=== PATIENT | female | born 1970 ===

== ENCOUNTER 2022-03-25 20:26 | Emergency (ER) | payer BC, SELFPAY ==
[2022-03-25 20:37] VITALS: BP 148/90; PULSE 92; RESP 16; TEMP 37.2; O2SAT 100; BMI 20.8
== END 2022-03-25 21:15 | disposition left against medical advice (07) ==
DX: Z53.21 Procedure and treatment not carried out due to patient leaving prior to being seen by health care provider (principal)

== ENCOUNTER 2023-01-02 13:44 | Outpatient (CLI) | payer BC, OTHER, SELFPAY | END 2023-01-02 13:45 | disposition home or self-care (01) | PROVIDERS: PCP Family Medicine; Visit Provider Family Medicine | DX: Z00.00 Encounter for general adult medical examination without abnormal findings (principal); R53.83 Other fatigue; E78.2 Mixed hyperlipidemia; Z78.0 Asymptomatic menopausal state | CPT/HCPCS: 80048; 82670; 83001; 83002; 84439; 84443; 85025; 86039; 86140 ==

== ENCOUNTER 2023-02-14 10:13 | Outpatient (CLI) | payer BC, OTHER, SELFPAY | END 2023-02-14 10:14 | disposition home or self-care (01) | LOC: INJ CL 10:14 | PROVIDERS: PCP Family Medicine; Visit Provider Family Medicine | DX: M54.16 Radiculopathy, lumbar region (principal) | CPT/HCPCS: 64483; J1100; Q9966 ==

== ENCOUNTER 2023-10-17 08:00 | Outpatient (CLI) | payer BC, SELFPAY ==
--- OUTSIDE RECORDS SUMMARY | 2023-10-17 08:03 | XMS_ITS | Referral Summary ---
Author Organization [facility] Address [address] [place] [address] Care Team Providers Care Candy Separator Enrobing Name Role Phone Elsewhere, Pcp Primary Care Provider Unavailabl e Source Comments Patient records contain information from all sites at [facility]. For routine questions regarding patient records, call [phone] during business hours, M-F 8:00 AM - 5:00 PM Central Time. Record requests for emergency care only can be directed to [phone] at any time.[facility] Allergies Active Allergy Reactions Criticality Noted Date Comments Amoxicillin Other (see comments) 11/30/2009 Cerner listed no reaction Penicillins Other (see comments),Edema (Reselect Reaction),Hives (Reselect Reaction) 05/12/2011 Medications Medication Sig Dispensed Refills Start Date End Date Status LACTOBACILLUS RHAMNOSUS GG ORAL Take by mouth as needed. Takes when on a antibiotic only. 02/17/2016 Active albuterol (PROVENTIL HFA,VENTOLIN HFA) 90 mcg/actuation inhaler Inhale 2 puffs as needed. 12/09/2017 Active multivitamin capsule Take 1 capsule by mouth daily. 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 No 07/31/2022 Within the last year, have y ou been humiliated or emotionally abused in other ways by your partner or ex-partner? No Within the last year, have y ou been kicked, hit, slapped, or otherwise physically hurt by your partner or ex-partner? No 07/31/2022 Within the last year, have y ou been raped or forced to have any kind of sexual activity by your partner or ex-partner? No 07/31/2022 Overall Financial Resource Strain (CARDIA) Answe r Date Recorded How hard is it for you to pa y for the very basics like food, housing, medical care, and heating? Not hard at all 07/31/2022 PHQ-2 Answer Date Recorded PHQ-2 Score 0 08/05/2022 Exercise Vital Sign Answer Date Recorde d Days of Exercise per Week Not on file 2022 On average, how many minutes do you engage in exercise at this level? 60 min 07/31/2022 Hunger Vital Sign Answer Date Recorded Within the past 12 months, y ou worried that your food would run out before you got the money to buy more. Never true 08/01/19 23 Within the past 12 months, t he food you bought just didn't last and you didn't have money to get more. Never true 07/31/2022 PRAPARE - Transportation Answer Date Re corded In the past 12 months, has l ack of transportation kept you from medical appointments or from getting medications? No 05/2022 In the past 12 months, has l ack of transportation kept you from meetings, work, or from getting things needed for daily living? No 07/31/2022 Nutrition Answer Date Recorded Nutrition: EVOO Fat Source Unknown 07/31 On average, how many serving s of fruits and vegetables do you eat per day (serving size is equal to 1 cup or approximately the size of a tennis ball)? 0-2 07/31/2022 Dental Answer Date Recorded Dental: Regular Dentist Yes 08/01/19 Employment Answer Date Recorded Employment status Employed and actively working without restrictions 07/31/2022 Housing Stability Answer Date Recorded What is your living situation today? I have a [facility] place to live 07/31/2022 Sex and Gender Information Value Date Recorded Sex Assigned at Female 06/22/2017 10:12 AM CDT Gender Identity Female 06/22/2017 10:12 AM CDT Sexual Orientation Straight 06/22/2017 10 :12 AM CDT Last Filed Vital Signs Vital Sign Reading Time Taken Comments Blood Pressure 106/76 08/05/2022 1:38 PM CDT Pulse 65 12/20/2017 10:09 AM CDT Temperature 36.6 ??C (97.9 ??F) 12/20/2017 10:09 AM C DT Respiratory Rate 16 12/20/2017 10:09 AM CDT Oxygen Saturation 100% 12/20/2017 10:09 AM CDT Inhaled Oxygen Concentration - - Weight 62.1 kg (137 lb 0.3 oz) 08/05/2022 1:38 P M CDT Height 168 cm (5' 6.14) 08/05/2022 1:38 PM CDT Body Mass Index 22.02 08/05/2022 1:38 PM CDT Plan of Treatment Not on file Procedures Procedure Name Priority Date/Time Associated Diagnosis Comments BI BREAST SCREENING BILATERAL WITH TOMOSYNTHESIS RAD - Routine (most inpatients and all outpatients) 09/16/2022 12:33 PM CDT Wellness Screening Screening Mammogram Breast Cancer COLOGUARD Routine 08/24/2022 9:05 AM CDT Wellness Screening HPV WITH GENOTYPING, PCR, THINPREP Routine 08/05/2022 2:15 PM CDT GLUCOSE, FASTING, S/P Routine 04/15/2020 7:53 AM CLOTH COLORER Screening Examination Diabetes Mellitus LIPID PANEL, S Routine 04/15/2020 7:53 AM CLOTH COLORER Hypercholesterole sailaja from Last 3 Months or Most Recently Relevant to Health Maintenance Results * BI Breast Screening Bilateral with Tomosynthesis (09/16/2022 12:33 PM CDT) Anatomical Region Laterality Modality Breast, Breast Imaging RST L OS, Breast Imaging ARZ LOS, Breast Imaging FLA LOS Bilateral Mammography 09/16/2022 12:5 8 PM CDT Impressions 09/16/2022 12:59 PM CDT Negative. RECOMMENDATION: ??Annual Screening Mammogram ASSESSMENT: ??BI-RADS: 1: Negative. Narrative 09/16/2022 12:59 PM CDT EXAM: ??BI BREAST SCREENING BILATERAL WITH TOMOSYNTHESIS Current study was evaluated with a Computer Aided Detection (CAD) system. INDICATION: ??Screening mammogram. COMPARISON: ??Prior exam(s) were available and reviewed for comparison. DENSITY: ??d. The breast(s) are extremely dense, which lowers the sensitivity of mammography. FINDINGS: ??No mammographic findings of malignancy. Procedure Note Kael Kam M.D. - 09/16/2022 EXAM: BI BREAST SCREENING BILATERAL WITH TOMOSYNTHESIS Current study was evaluated with a Computer Aided Detection (CAD) system. INDICATION: Screening mammogram. COMPARISON: Prior exam(s) were available and reviewed for comparison. DENSITY: d. The breast(s) are extremely dense, which lowers thesensitivity of mammography. FINDINGS: No mammographic findings of malignancy. IMPRESSION: Negative. RECOMMENDATION: Annual Screening Mammogram ASSESSMENT: BI-RADS: 1: Negative. Dalton Lam M.D. [facility]ED[place] * Cologuard - Sent Out Lab (08/24/2022 9:05 AM CDT) Result Negative Negative 09/07/2022 9:48 AM CDT EXLI Comment: NEGATIVE TEST RESULT. A negative Cologuard result indicates a low likelihood that a colorectal cancer (CRC) or advanced adenoma (adenomatous polyps with more advanced pre-malignant features) ??is present. The chance that a person with a negative Cologuard test has a colorectal cancer is less than 1 in 1500 (negative predictive value >99.9%) or has an ??advanced adenoma is less than ??5.3% (negative predictive value 94.7%). These data are based on a prospective cross-sectional study of 10,000 individuals at average risk for colorectal cancer who were screened with both Cologuard and colonoscopy. (Medardo Hackett al, N Engl J Med 2014;370(14):8189-2082) The normal value (reference range) for this assay is negative. COLOGUARD RE-SCREENING RECOMMENDATION: Periodic colorectal cancer screening is an important part of preventive healthcare for asymptomatic individuals at average risk for colorectal cancer. ??Following a negative Cologuard result, the [place] [employer] Society and U.S. Multi-Society Task Force screening guidelines recommend a Cologuard re-screening interval of 3 years. References: [place] [employer] Guideline for Colorectal Cancer Screening: https://www.cancer.org/cancer/pwfrw-xoupjr-kjomof/detection- diagnosis-staging/acs-recommendations.html.; Melquiades DK, Linda CLAROS, Zander XiaoK, Colorectal Cancer Screening: Recommendations for Physicians and Patients from the U.S. Multi-Society Task Force on Colorectal Cancer Screening , Am J Gastroenterology 2017; 112:6060-4072. TEST DESCRIPTION: Composite algorithmic analysis of stool DNA-biomarkers with hemoglobin immunoassay. ?? Quantitative values of individual biomarkers are not reportable and are not associated with individual biomarker result reference ranges. Cologuard is intended for colorectal cancer screening of adults of either sex, 45 years or older, who are at average-risk for colorectal cancer (CRC). Cologuard has been approved for use by the U.S. FDA. The performance of Cologuard was established in a cross sectional study of average-risk adults aged 50-84. Cologuard performance in patients ages 45 to 49 years was estimated by sub-group analysis of near-age groups. Colonoscopies performed for a positive result may find as the most clinically significant lesion: colorectal cancer [4.0%], advanced adenoma (including sessile serrated polyps greater than or equal to 1cm diameter) [20%] or non- advanced adenoma [31%]; or no colorectal neoplasia [45%]. These estimates are derived from a prospective cross-sectional screening study of 10,000 individuals at average risk for colorectal cancer who were screened with both Cologuard and colonoscopy. (Medardo Hackett al, N Engl J Med 2014;370(14):1318-8998.) Cologuard may produce a false negative or false positive result (no colorectal cancer or precancerous polyp present at colonoscopy follow up). A negative Cologuard test result does not guarantee the absence of CRC or advanced adenoma (pre-cancer). The current Cologuard screening interval is every 3 years. ([place] [employer] Society and U.S. Multi-Society Task Force). Cologuard performance data in a 10,000 patient pivotal study using colonoscopy as the reference method can be accessed at the following location: www.[employer]/results. Additional description of the Cologuard test process, warnings and precautions can be found at www.[email or web address].Lumific. Stool (Stool) 08/24/2022 9:0 5 AM CDT 08/25/2022 6:21 PM CDT Dalton Lam M.D. LAB BODY FLUIDS AND STOOLS ORDERABLES [employer] [address] [place] [id number] EXLI [employer] [address] [place] [address], [address] [place] [address] * HPV with Genotyping, PCR, ThinPrep (08/05/2022 2:15 PM CDT) HPV with Genotyping, ThinPrep, PCR Negative Negative 08/08/2022 4:37 PM CDT MKTO Comment: Negative for high risk HPV by nucleic acid amplification. ??The following high risk HPV types were not detected: 16, 18, 31, 33, 35, 39, 45, 51, 52, 56, 58, 59, 66, and 68 This result does not rule out HPV in the patient, as the sensitivity of the test depends on the timing of the specimen collection and the quality of the specimen. Result should be correlated with patient's history, clinical presentation, and AX SURVEY WORKER cytology report. 08/05/2022 2:15 PM CDT 08/08/2022 7:05 AM CDT Dalton Lam M.D. LAB MICROBIOLOGY - G ENERAL ORDERABLES [facility] [address] [place] [address], [place] MKTO [address] [facility] [address] [place] [address] * (ABNORMAL) Lipid Panel (04/15/2020 7:53 AM CLOTH COLORER) Cholesterol, Total 211(H) mg/dL 2020 11:07 AM CLOTH COLORER OWAT Comment: ----REFERENCE VALUE---- Desirable: < 200 Borderline high: 200 - 239 High: > or = 240 Triglycerides 62 mg/dL 04/15/2020 11:07 AM CLOTH COLORER OWAT Comment: ----REFERENCE VALUE---- Normal: <150 Borderline high: 150-199 High: 200-499 Very high: > or =500 Cholesterol, HDL 56 >=50 mg/dL 04/15/19 11:07 AM CLOTH COLORER OWAT Calculated LDL 143(H) mg/dL 04/15/2020 11:07 AM CLOTH COLORER OWAT Comment: ----REFERENCE VALUE---- Desirable: <100 Above Desirable: 100-129 Borderline high: 130-159 High: 160-189 Very high: > or =190 Cholesterol, Non-HDL, Calculated 155 mg/dL 04/15/2020 11:07 AM CLOTH COLORER OWAT Comment: ----REFERENCE VALUE---- Desirable: <130 Above Desirable: 130-159 Borderline high: 160-189 High: 190-219 Very high: > or =220 Blood (Blood, Venous) 04/15/2020 7:53 AM CLOTH COLORER 04/15/2020 10:39 AM CLOTH COLORER Fang Barraza APRN CPetersonN.P., R.N. LAB BL OOD ADD-ON [facility] [address] [place] [address], [place] OWAT [facility] [address] [place] [address] * Glucose, Fasting (04/15/2020 7:53 AM CLOTH COLORER) Glucose, P 90 70 - 100 mg/dL 04/15/2020 11:19 AM CLOTH COLORER OWAT Last Intake 12 hr 04/15/2020 10:39 AM CLOTH COLORER OWAT Blood (Blood, Venous) 04/15/2020 7:53 AM CLOTH COLORER 04/15/2020 10:39 AM CLOTH COLORER Fang Barraza APRN C.N.P., R.N. LAB BL OOD NON ADD-ON [facility] [address] [place] [address], [place] OW[place] [facility] [address] [place] [address] from Last 3 Months or Most Recently Relevant to Health Maintenance Care Teams Candy Separator Enrobing Relationship Specialty Start Date End Date Elsewhere, Pcp PCP - General Family Medicine 11/13/20
--- OUTSIDE RECORDS SUMMARY | 2023-10-17 08:03 | XMS_ITS ---
Author Organization [facility] Address [address] [place] [address] Care Team Providers Care Oil Dispatcher Name Role Phone Unavailable Unavailable Unavailable Surgery Details Not on file Complications Check Surgery Details section. Procedure Estimated Blood Loss Check Surgery Details section. Procedure Findings Check Surgery Details section. Procedure Specimens Taken Check Surgery Details section.
--- OUTSIDE RECORDS SUMMARY | 2023-10-17 08:03 | XMS_ITS | Clinical Summary ---
Author Organization [facility] Address [address] [place] [address] Care Team Providers Care Pathology Collector Name Role Phone Elsewhere, Pcp Primary Care Provider Unavailabl e Source Comments Patient records contain information from all sites at [facility]. For routine questions regarding patient records, call [phone] during business hours, M-F 8:00 AM - 5:00 PM Central Time. Record requests for emergency care only can be directed to [phone] at any time.[facility] Allergies Active Allergy Reactions Criticality [...] Unspecified 06/29/1987 Tdap 07/08/2005 TyVi (inj) 09/01/2014 Family History Medical History Relation Name Comments Depression Father Hyperlipidemia Father Hypertension Father Stroke Father Hyperlipidemia Mother Hypothyroidism Mother Breast cancer Mother's Sister Asthma Son Relation Name Status Comments Father Mother Mother's Sister Son Social History Tobacco Use Types Packs/Day Years [...] your living situation today? I have a [facility] place to live 07/31/2022 Sex and Gender [...] 08/05/2022 1:38 PM CDT Plan of Treatment Health Maintenance Due Date Last Done Comments CT Colonography 1970 Colonoscopy 1970 FIT 1970 HIV Screening 1970 Hepatitis C Screening 1970 Hepatitis B Vaccines (1 of 3 - 19+ 3-dose series) 1989 Zoster Vaccines (1 of 2) 2020 Lipid (Cholesterol) Screening 06/14/2022 06/14/2021, 04/15/2020, 12/14/2018, Additional history exists COVID-19 Vaccine ( season) 2022 Depression Screening (Annual PHQ-2) 02/27/2023 Mammogram 09/17/2023 09/16/2022, 07/08/2020, 12/19/2018, Additional history exists Fasting Glucose for Diabetes Screening 11/04/2023 11/03/2020, 04/15/2020, 01/30/2017, Additional history exists Influenza Vaccine (#1) 2023 Cervical Cancer Screening 08/05/20252022, 08/05/2022, 01/30/2017, Additional history exists Cologuard 08/24/2025 08/24/2022, 09/30/2020 Colorectal Cancer Screening 08/24/2025 DTaP,Tdap,and Td Vaccines (4 - Td or Tdap) 02/11/2029 02/11/2019, 07/08/2005, 06/29/1987 Hepatitis A Vaccines Completed 02/11/2019, 09/02/19 15 Pneumococcal vaccine (0-64 years) Aged Out No longer eligible based on patient's age to complete this topic Procedures Procedure Name Priority Date/Time Associated Diagnosis Comments BI BREAST SCREENING BILATERAL WITH TOMOSYNTHESIS RAD - Routine (most inpatients and all outpatients) 09/16/2022 12:33 PM CDT Wellness Screening Screening Mammogram Breast Cancer COLOGUARD Routine 08/24/2022 9:05 AM CDT Wellness Screening HPV WITH GENOTYPING, PCR, THINPREP Routine 08/05/2022 2:15 PM CDT GLUCOSE, FASTING, S/P Routine 04/15/2020 7:53 AM HEADING MAKER Screening Examination Diabetes Mellitus LIPID PANEL, S Routine 04/15/2020 7:53 AM HEADING MAKER Hypercholesterole sailaja from Last 3 Months or [...] 1: Negative. Dalton Lam M.D. [facility] [place] * Cologuard - Sent Out [...] (Medardo Hackett al, N Engl J Med 2014;370(14):7041-1562) The normal value (reference range) for this assay is negative. COLOGUARD RE-SCREENING RECOMMENDATION: Periodic colorectal cancer screening is an important part of preventive healthcare for asymptomatic individuals at average risk for colorectal cancer. ??Following a negative Cologuard result, the [place] [employer] and U.S. Multi-Society Task Force screening guidelines recommend a Cologuard re-screening interval of 3 years. References: [place] [employer] Guideline for Colorectal Cancer Screening: https://www.cancer.org/cancer/vbnyy-fkvzzo-cqdrtm/detection- diagnosis-staging/acs-recommendations.html.; Melquiades DK, Linda CLAROS, Zander XiaoK, Colorectal Cancer Screening: Recommendations for Physicians and Patients from the U.S. Multi-Society Task Force on Colorectal Cancer Screening , Am J Gastroenterology 2017; 112:2999-5693. TEST DESCRIPTION: Composite algorithmic analysis of stool [...] (Medardo Hackett al, N Engl J Med 2014;370(14):7734-1952.) Cologuard may produce a false negative or false positive result (no colorectal cancer or precancerous polyp present at colonoscopy follow up). A negative Cologuard test result does not guarantee the absence of CRC or advanced adenoma (pre-cancer). The current Cologuard screening interval is every 3 years. ([place] Cancer Society and U.S. Multi-Society Task Force). Cologuard performance data in a 10,000 patient pivotal study using colonoscopy as the reference method can be accessed at the following location: www.[employer]/results. Additional description of the Cologuard test process, warnings and precautions can be found at www.cologSequence Designrd.com. Stool (Stool) 08/24/2022 9:0 5 AM CDT 08/25/2022 6:21 PM CDT Dalton Lam M.D. LAB BODY FLUIDS AND STOOLS ORDERABLES Performing Organization Address [facility] Co de Phone Number [employer] [address] [place] [id number] EXLI [employer] [address] [place] [address], [address] [place] [address] * HPV with Genotyping, PCR, ThinPrep (08/05/2022 [...] correlated with patient's history, clinical presentation, and CADWORX PIPING DESIGNER cytology report. 08/05/2022 2:15 PM CDT 08/08/2022 7:05 AM CDT Dalton Lam M.D. LAB MICROBIOLOGY - G ENERAL ORDERABLES Performing Organization Address [facility] Co de Phone Number [facility] [address] [place] [address], [facility] MKTO [address] [address] * (ABNORMAL) Lipid Panel (04/15/2020 7:53 AM HEADING MAKER) Cholesterol, Total 211(H) mg/dL 2020 11:07 AM HEADING MAKER OWAT Comment: ----REFERENCE VALUE---- Desirable: < 200 Borderline high: 200 - 239 High: > or = 240 Triglycerides 62 mg/dL 04/15/2020 11:07 AM HEADING MAKER OWAT Comment: ----REFERENCE VALUE---- Normal: <150 Borderline high: 150-199 High: 200-499 Very high: > or =500 Cholesterol, HDL 56 >=50 mg/dL 04/15/19 11:07 AM HEADING MAKER OWAT Calculated LDL 143(H) mg/dL 04/15/2020 11:07 AM HEADING MAKER OWAT Comment: ----REFERENCE VALUE---- Desirable: <100 Above Desirable: 100-129 Borderline high: 130-159 High: 160-189 Very high: > or =190 Cholesterol, Non-HDL, Calculated 155 mg/dL 04/15/2020 11:07 AM HEADING MAKER OWAT Comment: ----REFERENCE VALUE---- Desirable: <130 Above Desirable: 130-159 Borderline high: 160-189 High: 190-219 Very high: > or =220 Blood (Blood, Venous) 04/15/2020 7:53 AM HEADING MAKER 04/15/2020 10:39 AM HEADING MAKER Fang Barraza APRN, C.N.P., R.N. LAB BL OOD ADD-ON [facility] [address] [place] [address], [facility] OWAT [facility] [address] [place] [address] * Glucose, Fasting (04/15/2020 7:53 AM HEADING MAKER) Glucose, P 90 70 - 100 mg/dL 04/15/2020 11:19 AM HEADING MAKER OWAT Last Intake 12 hr 04/15/2020 10:39 AM HEADING MAKER OWAT Blood (Blood, Venous) 04/15/2020 7:53 AM HEADING MAKER 04/15/2020 10:39 AM HEADING MAKER Fang Barraza APRN C.N.P., R.N. LAB BL OOD NON ADD-ON [facility] [address] [place] [address], [place] OWAT [facility] [place] [address] [place] [address] from Last 3 Months or Most Recently Relevant to Health Maintenance Care Teams Pathology Collector Relationship Specialty Start Date End Date Elsewhere, Pcp PCP - General Family Medicine 11/13/20
--- OUTSIDE RECORDS SUMMARY | 2023-10-17 08:03 | XMS_ITS | Clinical Summary ---
Author Organization [facility] [facility] Address [place], [place] [address] Care Team Providers Care Sports Intern Name Role Phone Carey Mcneal MD Primary Care Provider [phone] Allergies Active Allergy Reactions Criticality Noted Date Comments Amoxicillin *Unknown 01/31/2017 Penicillins Hives,Edema,Angioedema 05/12/2011 Medications Medication Sig Dispensed Refills Start Date End Date Status fluticasone (50 mcg per actuation) nasal solution (FLONASE)Indications :Otalgia of left ear,Dysfunction of Eustachian tube, unspecified laterality Inhale 2 Sprays to both nostrils once daily. 16 g 1 09/07/2022 Active cholecalciferol, Vitamin D3, 2,000 unit tablet Take 400 units by mouth once daily. Active medication order composer Calcium and vitamin d unsure of dose Active estradioL (ESTRACE) 0.5 mg tabletIndications:Pe rimenopause Take 0.5 Tablets (0.25 mg) by mouth once daily. 45 Tablet 09/06/2023 Active progesterone micronized (PROMETRIUM) 100 mg capsuleIndications:P erimenopause 2 capsules daily for the first 12 days of each calendar month. This product contains peanut oil. Please verify patient allergies. 72 Capsule 09/06/2023 Active Active Problems Problem Noted Date Diagnosed Date Sensorineural hearing loss, bilateral 10/11/2022 Femoroacetabular impingement of left hip 023 Hip pain 05/23/2022 Sciatica of left side 05/23/2022 Chronic left-sided low back pain with left-sided sciatica 05/23/2022 Palpitations 01/28/2021 COVID-19 virus infection 01/28/2021 Screening for colon cancer 10/01/2020 Overview: cologuard negative 09/2020 KIRIT 08/25/2020 AHI- 5 09/10/2020 Hypercholesterolemia 12/16/2018 Third degree hemorrhoids 02/28/2017 Resolved Problems Problem Noted Date Diagnosed Date Resolved Date SVT (supraventricular tachycardia) 01/28/2021 06/14/2021 Overview: see workup and Cardiology visit Encounters Date Type Department Care Team Description 10/15/2023 Travel 10/03/2023 Telephone [facility] [address] [facility] [address] Ramesh Sin MD Questions 09/12/2023 12:45 PM CDT - 09/12/2023 11:59 PM CDT Hospital Encounter [facility] [address] [place] [address] Ramesh Sin MD Lumbosacral radiculopathy at L5; Bulge of lumbar disc without myelopathy; Stenosis of lateral recess of lumbar spine 09/12/2023 Medical Messaging [facility] [address] [facility] [place] [address] Ramesh Sin MD Back! 09/12/2023 Travel 08/30/2023 11:20 AM CDT Office Visit [facility] [address] [facility] [address] Ramesh Sin MD Musculoskeletal Problem (Follow up back and leg pain ) 08/29/2023 Travel 08/25/2023 Medical Messaging [facility] [address] [place] [address] Carey Mcneal MD Prescription 08/25/2023 Telephone [facility] [address] [place] [address] Carey Mcneal MD Medication Management 08/08/2023 1:13 PM CDT - 08/08/2023 11:59 PM CDT Hospital Encounter [facility] [address] [place] [address] Encounter for other screening for malignant neoplasm of breast 08/08/2023 Travel 08/03/2023 2:45 PM CDT Office Visit [facility] [address] [place] [address] Carey Mcneal MD Hair/Scalp Problem (Hair loss 1 year ); Menstrual Problem (Periods on and off 1 year); Toenail (Toenails peeled off and finger nails not growing) 08/03/2023 Travel from Last 3 Months Immunizations Name Administration Dates Next Due Hepatitis A (Adult) 02/11/2019,09/01/2014 Td (Age >=7 Years) 02/11/2019 Tdap 07/08/2005 Typhoid (injectable) 09/01/2014 Family History Medical History Relation Name Comments Colon polyps Father Hyperlipidemia Father Hypertension Father Stroke Father Hyperlipidemia Mother Cancer-breast No Family History Relation Name Status Comments Father Alive Mother Alive Social History Tobacco Use Types Packs/Day Years Used Date Smoking Tobacco: Never Smokeless Tobacco: Never Tobacco Cessation:Counseling Given: Yes Alcohol Use Standard Drinks/Week Comments Yes 0 (1 standard drink = 0.6 oz pur e alcohol) PHQ-2 Answer Date Recorded PHQ-2 TOTAL SCORE 0 04/19/2022 Social Connections Answer Date Recorded Frequency of Communication with Friends and Fami ly Not on file 02/27/2021 Alcohol Use Answer Date Recorded How often do you have a drink containing alcohol ? 2 08/03/2023 How many drinks containing a lcohol do you have on a typical day when you are drinking? 0 08/03/2023 How often do you have five or more drinks on one occasion? 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 Oxygen Saturation 100% 08/30/2023 11:32 AM CDT Inhaled Oxygen Concentration - - Weight 61.7 kg (136 lb) 08/03/2023 3:05 PM CDT Height 170.2 cm (5' 7) 07/29/2022 1:11 PM CDT Body Mass Index 21.3 07/29/2022 1:11 PM CDT Plan of Treatment Upcoming Encounters Date Type Department Care Team (Late st Contact Info) Description 10/17/2023 8:20 AM CDT Office Visit [facility] [address] [place] [phone] Ramesh Sin MD [address] [place] [address] Arrived Health Maintenance Due Date Last Done Comments HIV for age 15-65 1985 Hepatitis C screening for age 18-79 1988 Zoster (shingles) series for age 50+ (1 of 2) 2020 COVID-19 vaccine series (2022-24 season) 2022 Depression screening for age 12+ 04/19/2023 04/19/2022, 08/14/2020, 02/11/2019 BMI (ht and wt on same day) for age 18+ 07/30/2023 07/29/2022, 11/27/2020, 09/10/2020, Additional history exists Fecal testing sDNA-FIT (Cologuard) for age 45-75 09/25/2023 09/24/2020 Influenza for age 50-64 10/29/2023 Pap test for age 21-65 01/31/2024 9 (Completed outside of [facility]), 05/12/2011, 05/12/2011, Additional history exists Mammogram for age 45-75 08/07/2024 08/08/19 24, 09/22/2020, 12/19/2018 (Completed outside of [facility]), Additional history exists Lipids for age 45-75 06/14/2026 06/14/2021, 12/14/2018 ([facility]), 05/11/2011, Additional history exists Tetanus booster 02/11/2029 02/11/2019, 07/08/2005 Tdap Completed 07/08/2005 Pneumococcal series for age 6-64 Aged Out No longer eligible based on patient's age to complete this topic Procedures Procedure Name Priority Date/Time Associated Diagnosis Comments AMB EPIDURAL STEROID INJECTION Routine 10/03/2023 7:59 AM CDT Lumbosacral radiculopathy at L5 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 disc herniation MR SPINE LUMBAR WO Routine 09/12/2023 1: 21 PM CDT Lumbosacral radiculopathy at L5 Bulge of lumbar disc without myelopathy Stenosis of lateral recess of lumbar spine XR MAMMO BILAT SCREENING Routine 08/08/2023 1:29 PM CDT Encounter for other screening for malignant neoplasm of breast PROLACTIN Routine 08/03/2023 4:00 PM CDT Nipple tenderness TSH WITH REFLEX Routine 08/03/2023 4:00 PM CDT Hair loss LIPID PANEL Routine 06/14/2021 9:38 AM CDT Lipid screening SCAN-FECAL TEST DNA (COLOGUARD) 09/24/2020 12:00 AM CDT TROUBLE LOCATER THIN PREP PAP SCREEN IMAGED Routine 05/12/2011 9:39 AM CDT Screening for malignant neoplasm of the cervix from Last 3 Months or Most Recently Relevant to Health Maintenance Results * MR SPINE LUMBAR WO (09/12/2023 1:21 PM CDT) Anatomical Region Laterality Modality Spine, LUMBAR SPINE Magnetic Res onance 09/12/2023 2:16 PM CDT Impressions 09/12/2023 2:16 PM CDT 1. Normal alignment. No fractures 2. Lumbar spondylosis. 3. At L3-4 , Mild narrowing of the spinal canal 4. At L4-5, new left subarticular disc protrusion. Moderate narrowing of the spinal canal. Impingement of the traversing left L5 nerve root. Dictated by Venkata Bennett MD @ 09/12/2023 2:16:22 PM (Electronically Signed) Narrative 09/12/2023 2:16 PM CDT For Patients: ??As a result of the Cures Act, medical imaging exams and procedure reports are released immediately into your electronic medical record. ??You may view this report before your referring provider. ??If you have questions, please contact your health care provider. INDICATION: Radiculopathy. COMPARISON: 11/05/2021. Technique Sagittal T1, T2, and STIR sequences. Axial T1 and T2 weighted sequences. FINDINGS: Normal vertebral body alignment. No fractures. No vertebral body loss of height. No spondylolisthesis. No ligamentous injury. No suspicious osseous lesions. Normal conus terminates at L1. T12-L1: Disc generation posted disc bulge. No narrowing of spinal canal. No neural foraminal narrowing. L1-2: Disc degeneration posterior disc bulge. No narrowing of spinal canal. No neural foraminal narrowing. L2-3: No spinal canal or neural foraminal narrowing. L3-4: Posterior disc bulge. Flattening of ventral thecal sac. Mild narrowing of spinal canal. No neural foraminal narrowing. L4-5: Disc degeneration and posterior disc bulge. Compared to the previous MRI, there is a new left subarticular disc protrusion measuring approximately 3 mm in short axis. Moderate narrowing of the spinal canal. Impingement of the traversing left L5 nerve root. No neural foraminal narrowing. L5-S1: No narrowing of spinal canal. No impingement of the traversing S1 nerve roots. No neural foraminal narrowing. Mild facet arthropathy. Normal visualized SI joints. Normal paraspinal soft tissues. Procedure Note Venkata Bennett MD, PhD - 09/12/2023 For Patients: As a result of the Cures Act, medical imagingexams and procedure reports are released immediately into your electronicmedical record. You may view this report before your referring provider.If you have questions, please contact your health care provider. INDICATION: Radiculopathy. COMPARISON: 11/05/2021. Technique Sagittal T1, T2, and STIR sequences. Axial T1 and T2 weightedsequences. FINDINGS: Normal vertebral body alignment. No fractures. No vertebral body loss ofheight. No spondylolisthesis. No ligamentous injury. No suspicious osseouslesions. Normal conus terminates at L1. T12-L1: Disc generation posted disc bulge. No narrowing of spinal canal.No neural foraminal narrowing. L1-2: Disc degeneration posterior disc bulge. No narrowing of spinalcanal. No neural foraminal narrowing. L2-3: No spinal canal or neural foraminal narrowing. L3-4: Posterior disc bulge. Flattening of ventral thecal sac. Mildnarrowing of spinal canal. No neural foraminal narrowing. L4-5: Disc degeneration and posterior disc bulge. Compared to the previousMRI, there is a new left subarticular disc protrusion measuringapproximately 3 mm in short axis. Moderate narrowing of the spinal canal.Impingement of the traversing left L5 nerve root. No neural foraminalnarrowing. L5-S1: No narrowing of spinal canal. No impingement of the traversing R9enixp roots. No neural foraminal narrowing. Mild facet arthropathy. Normal visualized SI joints. Normal paraspinal soft tissues. IMPRESSION: 1. Normal alignment. No fractures 2. Lumbar spondylosis. 3. At L3-4 , Mild narrowing of the spinal canal 4. At L4-5, new left subarticular disc protrusion. Moderate narrowing ofthe spinal canal. Impingement of the traversing left L5 nerve root. Dictated by Venkata Bennett MD @ 09/12/2023 2:16:22 PM (Electronically Signed) Ramesh Sin MD MR * XR MAMMO BILAT SCREENING (08/08/2023 1:29 PM CDT) Anatomical Region Laterality Modality BREASTS, Breast Left, Breast Right Bilateral Mammography Addenda Addendum by Gregorio Parker MD on 08/30/2023 1:30 PM CDT Over read. This study was reviewed on [email or web address] compliant workstation. There is no discrepancy with the original report. Impressions 08/08/2023 5:41 PM CDT ??There is no radiographic evidence for malignancy. ??Recommend annual mammograms. MAMMOGRAM ASSESSMENT: ??ACR 2 Benign PATIENTS: You will also receive a letter with your examination results in an easy to read format. ??If you have questions about your results, please contact your referring provider. Narrative 08/08/2023 5:41 PM CDT For Patients: As a result of the Century Cures Act, medical imaging exams and procedure reports are released immediately into your electronic medical record. You may view this report before your referring provider. If you have questions, please contact your health care provider. XR MAMMO BILAT SCREENING [[id number]] CLINICAL HISTORY: ??This is an asymptomatic 53 y.o. patient. INDICATION FOR EXAM: Mammogram Screening. TECHNIQUE: CC & MLO views were obtained. ??This study was evaluated with the assistance of Computer-Aided Detection. COMPARISON FILMS: Yes 09/22/20 ? FINDINGS: ??The breasts are heterogeneously dense, which may obscure small masses. ??No suspicious masses or microcalcifications. ??There are benign appearing calcifications.. Juanita Lange NP MAMMO * TSH WITH REFLEX (08/03/2023 4:00 PM CDT) TSH 2.84 0.27 - 4.20 uIU/mL 08/04/2023 2:53 PM CDT [facility] Blood BLOOD SPECIMEN / Unknown Venipuncture / Unknown 08/03/2023 4:00 PM CDT 08/03/2023 4:01 PM CDT Narrative [facility] - 08/04/2023 2:53 PM CDT In Adults, TSH values between 5.00 and 10.00 uIU/ml do not necessarily indicate the presence of Hypothyroidism. Correlation with clinical findings such as presence of goiter and/or Thyroperoxidase (TPO) Antibody may be helpful. For more information please refer to LEYDI 2004; 291: 228-238. Carey Mcneal MD CHEMISTRY [facility] [address] [place] [address], * PROLACTIN (08/03/2023 4:00 PM CDT) PROLACTIN 10.90 4.79 - 23.30 ng/mL 08/04/2023 2:53 PM CDT [facility] Blood BLOOD SPECIMEN / Unknown Venipuncture / Unknown 08/03/2023 4:00 PM CDT 08/03/2023 4:01 PM CDT Carey Mcneal MD [facility] [address] [place] [address], * (ABNORMAL) LIPID PANEL (06/14/2021 9:38 AM CDT) CHOLESTEROL,TOTAL 215(H) 100 - 199 mg/dL 06/14/2021 10:12 AM [facility] TRIGLYCERIDES 54 <150 mg/dL 06/14/2021 10:12 AM [facility] HDL CHOLESTEROL 57 >40 mg/dL 10:12 AM [facility] NON-HDL CHOLESTEROL 158(H) <145 mg/dl 06/14/2021 10:12 AM [facility] CHOL/HDL RATIO 3.77 <4.50 06/14/2021 10:12 AM [facility] LDL CHOLESTEROL 147(H) <=130 mg/dL 06/14/2021 10:12 AM [facility] VLDL CHOLESTEROL 11 <=30 mg/dL 06/14/2021 10:12 AM [facility] PROVIDER ORDERED STATUS RANDOM 06/14/2021 10:12 AM [facility] Blood BLOOD SPECIMEN / Unknown Venipuncture / Unknown 06/14/2021 9:38 AM CDT 06/14/2021 9:40 AM CDT Juanita Lange NP CHEMISTRY [facility] [address] [place] [address] * SCAN-FECAL TEST DNA (COLOGUARD) (09/24/2020 12:00 AM CDT) Scanner OTHER * TROUBLE LOCATER THIN PREP PAP SCREEN IMAGED (05/12/2011 9:39 AM CDT) CYTOLOGY CYTOPATHOLOGY REPORT [facility] Status: Final Status ?[id number] CLINICAL INFORMATION Last Date of LMP ? :05-02-11 Last Pap Date ?:April 2010 Last Pap Result ?:NIL ABN [place]/Bx Past 5 YRS :None Hormone Usage ?:BCP/OCP/Patch/R ing Menstrual Status ? :Regular Periods [place]/Bx done today ? :No Additional Information :None given HPV Request ?:HPV if ASCUS SPECIMEN SOURCE ?:Cervical/vagina l ThinPrep Vial, screening SPECIMEN ADEQUACY ?:Satisfactory for evaluation Endocervical component ? present. INTERPRETATION/RES ULT Negative for intraepithelial lesion or malignancy (NIL) Cytology 1st Screener ??:lgb Signed by ?:lgb This specimen was screened by the FDA approved ThinPrep Imaging System and manually reviewed. NOTE: ??The Pap test is a screening technique, not a diagnostic procedure. ??It is used ??primarily to screen for squamous cancers and precursor lesions. ??Published studies have shown that it is subject to both false negative and false positive results. ??The pap test should not be used as the sole means to diagnose or exclude pre-malignant and malignant lesions. COLLECTED:05/12/11 ? ACCESSIONED: ??05/12/11 ?? SIGNED: ??05/17/11 [facility] PAP [place] CODE NIL [facility] Tissue specimen (specimen) (Cervical/Vagina l) 05/12/2011 9:39 AM CDT 05/12/2011 9:37 AM CDT Juanita Lange NP PATHOLOGY/CYTOLOGY [facility] [place]NAL ZIP [address] [place] [id number] from Last 3 Months or Most Recently Relevant to Health Maintenance Care Teams Sports Intern Relationship Specialty Start Date End Date Carey Mcneal MD [address] [place] [address] PCP - General Family Practice 08/25/23
== END 2023-10-17 08:01 | disposition home or self-care (01) ==
LOC: INJ CL 08:01
PROVIDERS: PCP Family Medicine; Visit Provider Family Medicine
DX: M54.16 Radiculopathy, lumbar region (principal); M51.26 Other intervertebral disc displacement, lumbar region
CPT/HCPCS: 64483; J1100; Q9966

== ENCOUNTER 2024-01-16 16:14 | Outpatient (CLI) | payer BC, SELFPAY | END 2024-01-16 16:15 | disposition home or self-care (01) | PROVIDERS: PCP Family Medicine; Visit Provider Family Medicine | DX: Z01.818 Encounter for other preprocedural examination (principal); L64.9 Androgenic alopecia, unspecified | CPT/HCPCS: 80048; 84443; 85025 ==

== ENCOUNTER 2024-08-13 09:06 | Outpatient (CLI) | payer BC, SELFPAY | END 2024-08-13 09:07 | disposition home or self-care (01) | PROVIDERS: PCP Family Medicine; Visit Provider Family Medicine | DX: Z01.818 Encounter for other preprocedural examination (principal) | CPT/HCPCS: 80048; 85025 ==